=== PATIENT | female | born 1970 | race Caucasian/White ===

== ENCOUNTER 2024-04-12 11:49 | Emergency (ER) | payer OTHER, SELFPAY ==
[2024-04-12] VITALS (10 sets, daily range): BP systolic 120–143; BP diastolic 76–89; PULSE 60–70; BMI 28.5
[2024-04-12 13:01] LABS: % Basophils 0.3 % (0-2); % Eosinophils 0.2 % (0-6); % Immature Granulocytes 0.2 % (0-0.5); % Lymphocytes 27.8 % (20.5-51.1); % Monocytes 6.2 % (1.7-9.3); % Neutrophils 65.3 % (42.2-75.2); Absolute Lymphocytes 1.7 10^3/uL (1.2-3.4); Absolute Monocytes 0.4 10^3/uL (0.1-0.6); Absolute Neutrophils 4.1 10^3/uL (1.4-6.5); Hematocrit 40.9 % (37.0-47.0); Hemoglobin 14.1 g/dL (12.0-16.0); Mean Corp Hgb Conc. 34.5 g/dL (33.0-37.0); Mean Corpuscular Hgb 33.8 pg (27.0-31.0); Mean Corpuscular Volume 98.1 fL (81.0-99.0); Mean Platelet Volume 10.8 fL (7.4-10.4); Nucleated Red Blood Cells % 0 %; Platelet Count 279 10^3/uL (130-400); Red Blood Cell Count 4.17 10^6/uL (4.20-5.40); Red Cell Dist. Width 11.4 % (11.5-14.5); White Blood Cell Count 6.3 10^3/uL (4.8-10.8)
--- NOTE | 2024-04-12 13:07 | ED.GENMED ---
History of Present Illness
General
Chief Complaint: Dizziness
Source: patient
Exam Limitations: none
Time Seen by Provider: 04/12/24 12:25
Nursing documentation reviewed up to this point in time: agreed with
History of Present Illness
History of Present Illness:
53-year-old female with a past medical history of hypertension who presents to the emergency room for evaluation of dizziness. Patient reports onset of symptoms around 8:30 AM and they have been constant since then. She reports more of a room
spinning sensation that seems to be worse when she moves her head. She says that she has been dealing with low back strain after lifting something heavy last week�was seen in urgent care yesterday and prescribed steroids as well as cyclobenzaprine.
This morning woke up around 5 AM with some tightness in her back and so she took the cyclobenzaprine was able to get back to sleep. She woke up around 8:30 AM with the dizziness. She has not had any nausea or vomiting. Denies any headache. She
denies any change in vision or speech. Denies any weakness or numbness in her extremities. She denies any chest pain or shortness of breath. She denies any recent URI symptoms. She denies any other issues. She denies similar symptoms in the
past.
Review of Systems
Review of Systems
All Other Systems: ROS reviewed and negative except as documented in HPI and ROS
Constitutional: Denies fever or chills
EENT: Denies sore throat or runny nose
Respiratory: Denies cough or trouble breathing
Cardiac: Denies chest pain or palpitations
ABD/GI: Denies abdominal pain, nausea or vomiting
: Denies flank pain
Musculoskeletal: Denies neck pain or back pain
Neurological: Reports dizzy; Denies headache, weakness or numbness
Phy Exam
Physical Exam
Physical Exam:
General: Awake, alert, oriented x3; no acute distress
Head: Normocephalic, atraumatic
Eyes: Conjunctiva normal, EOMI, pupils equal round reactive to light bilaterally; negative [place]-Hallpike
Throat: Airway intact, handling secretions
Neck: Trachea midline, supple without meningismus
Lungs: Clear to auscultation bilaterally, no wheezing, rales, rhonchi
Heart: Regular rate and rhythm, no murmurs, gallops, or rubs
Abd: Soft, non distended, nontender with no masses
Neuro: Cranial nerves intact 2 through 12, speech fluent with no dysarthria or aphasia, no limb ataxia, motor and sensory function intact and symmetric proximally and distally in the upper and lower extremities
Skin: no rash
Extremities: No edema in extremities, equal pulses in all extremities
Scores
Heart Failure Risk
Heart Failure Risk Score: Not Applicable
Heart Score for Chest Pain Patients
STEMI patient?: Not applicable
Withdrawal Assessment of Alcohol
Withdrawal Assessment Completed?: Not applicable
Course
Orders/Labs/Results
Orders:
Orders
04/12/24 12:54
Electrocardiogram (*1) Urgent
Reason for Study: Vertigo / Dizzy
EKG- Treatment ONCE
Orthostatic VS- Treatment ONCE
Complete Blood Count/With Diff Urgent
Comprehensive Metabolic Panel Urgent
0.9% Sodium Chloride 1000 ml [Nss] 1,000 ml IV BOLUS
Abnormal Lab Results
04/12/24
12:54
RBC 4.17 L 10^6/uL
(4.20-5.40)
MCH 33.8 H pg
(27.0-31.0)
RDW 11.4 L %
(11.5-14.5)
MPV 10.8 H fL
(7.4-10.4)
04/12/24 12:54
04/12/24 12:54
Vital Signs
Initial and Last Documented VS:
Initial Vital Signs
Temp Pulse Resp BP Pulse Ox
36.9 C 80 18 143/89 99
04/12/24 12:00 04/12/24 12:00 04/12/24 12:00 04/12/24 12:00 04/12/24 12:00
Last Documented Vital Signs
Temp Pulse Resp BP Pulse Ox
36.9 C 77 16 127/76 98
04/12/24 12:00 04/12/24 16:15 04/12/24 14:14 04/12/24 16:00 04/12/24 16:15
MDM/Problems Addressed
Differential Diagnosis Includes:
Vertigo: Differential diagnosis includes BPPV, labyrinthitis, vestibular neuritis, medication side effect, cardiac dysrhythmia, CVA considered very unlikely
MDM/Problems Addressed:
53-year-old female presents for evaluation of dizziness that started shortly after taking cyclobenzaprine for low back strain�had some tightness in her back around 5 AM and took cyclobenzaprine and went back to bed and then woke up at 8:30 AM with
dizziness. Denies any other complaints. Vital signs are normal here. Physical exam as above�notably no focal neurologic deficits. Suspect this is likely a side effect of cyclobenzaprine�dizziness can occur in up to 1 in 10 patients taking this
medication. Will check basic labs including a CBC and a CMP to rule out any anemia, electrolyte derangement, uremia. Will check an EKG to rule out any dysrhythmia. Will provide some fluids. Reassess after the above.
Labs reviewed: CBC and CMP unremarkable. EKG shows sinus rhythm. Vitals have been stable throughout ED visit. Symptoms completely resolved with ED observation. Suspect that this was likely related to muscle relaxer. Advised to refrain from
taking going forward. We spoke about return precautions and all questions answered.
*Pulse Oximetry
Patient hypoxic: no
*Critical Care Note
Total Time (30-74mins, 75-104mins- exclusive of procedures): Not Applicable
Data Reviewed
Review of Other/Old Records Reveals: Labs
Source: patient and records
Further Testing Considered But Not Given:
Considered need for CT head but with no neurologic deficits on exam and history more consistent with medication side effect no clear emergent indication for head imaging
ED Attending Note
-
Portions of this chart may have been created with voice recognition software.� Occasional wrong word or��sound alike� substitutions may have occurred due to the inherent limitations of voice recognition software.
Discharge Plan
Departure
Patient Disposition: Home (Routine Discharge)
Date of Disposition: 04/12/24
Time of Disposition: 16:37
Patient with high blood pressure during this ER visit?: No
Discharge Problem:
Dizziness
Instructions: Dizziness
Referrals:
Pepper De Santiago MD [Family Provider] - Follow up in 2-3 days
Activity Restrictions/Additional Instructions:
Thank you for visiting the Emergency Department at [facility].
1. Please schedule a follow up appointment as directed. Call first thing tomorrow morning to make an appointment.
2. If indicated, please take your medications as instructed and indicated on discharge paperwork.
3. If any of your symptoms do not improve, or persist, or become more severe within 6-12 hours, please return to the emergency department for further care.
4. Please return to the emergency department if you develop a headache, neck pain/stiffness, fever greater than 100.4F, chest pain, shortness of breath, persistent nausea, vomiting, slurred speech, difficulty walking, numbness/tingling, weakness,
signs of infection or any other symptoms that are worrisome to you.
Please call [phone] if you have any questions.
Interventions
Interventions:
*Risk Screen - Suicide Last Done: 04/12/24 12:00
*Neglect/Abuse Screening Last Done: 04/12/24 12:00
*ED COVID-19 Vaccine History Last Done: 04/12/24 12:00
ED- Neurological Assessment Last Done: 04/12/24 12:33
ED Swallowing Screen Last Done: 04/12/24 12:33
Discharge Date and Time
Print Language: [id number]
[2024-04-12 13:14] LABS: ALT (SGPT) 28 U/L (0-35); AST (SGOT) 34 U/L (14-36); Albumin 4.6 g/dl (3.5-5.0); Alkaline Phosphatase 64 U/L (38-126); Blood Urea Nitrogen 8 mg/dl (7-17); Calcium 9.9 mg/dl (8.4-10.2); Carbon Dioxide 28 mmol/L (22-30); Chloride 101 mmol/L (98-107); Estimated Creatinine Clearance 118 ml/min; Glucose 88 mg/dl (70-99); Potassium 4.4 mmol/L (3.5-5.1); Sodium 136 mmol/L (135-145); Total Bilirubin 1.1 mg/dl (0.2-1.3); Total Protein 7.3 g/dl (6.3-8.2); eGFR > 60.00
[2024-04-12] MEDS: NSS 1000 IV (13:36)
== END 2024-04-12 17:10 | disposition home or self-care (01) ==
LOC: EMR 11:49
PROVIDERS: EMERGENCY PHYSICIAN Emergency Medicine; FAMILY PHYSICIAN Internal Medicine
DX: R42 Dizziness and giddiness (principal); I10 Essential (primary) hypertension
CPT/HCPCS: 99283; 96360; 80053; 85025; 93005